=== PATIENT | male | born 1950 | race Caucasian/White ===

== ENCOUNTER → 2018-01-31 07:17 | Outpatient (CLI) | payer BC, SELFPAY ==
--- NOTE | 2018-01-31 07:20 | NM_ITS ---
History and Indications: Coronary artery disease, hypertension, family history, chest pain and fatigue Procedure: Patient exercised on Josh protocol 6 metastases and 45 seconds, resting heart rate was 75 bpm resting blood pressure 166/91, scan maximum heart achieved was 87 bpm which is greater than 85% of the maximum predicted and a blood pressure was 200/90. Test was started due to shortness of breath and fatigue. Patient denied any complained of chest pain. Patient has adequate exercise capacity achieved 7METS of workload on treadmill, the blood pressure response to exercise was adequate. Electrocardiogram: Resting electrocardiogram showed sinus rhythm nonspecific ST-T changes, with exercise there is additional [address] segment depression noted from the baseline EKG. The EKG portion of the exercise Myoview is nondiagnostic baseline abnormal EKG. Cardiac stress and resting SPECT images: Cardiac stress and rest SPECT images were obtained using technetium 99 Myoview 31.7 mCi at stress gated 10.5 mCi at rest. Gated SPECT further analysis of segmental wall motion and calculation of the ejection fraction also done. Cardiac stress and rest SPECT images show a partial fixed defect involving the inferior, posterobasal and apical wall. Consistent with Ischemia and scar, computer derived ejection fraction is 43% with moderate hypokinesis involving the inferior, posterobasal wall and apical wall. Right ventricle is normal size and contractility. Conclusion: 1. The EKG portion of the exercise Myoview is nondiagnostic secondary to baseline abnormal EKG. Patient has adequate exercise capacity achieved 7mets of workload on treadmill, the blood pressure response was adequate, there was no exercise-induced chest discomfort. 2. Scintigraphic evidence of mixed ischemia and scar involving the inferior, posterior basal and apical wall. Computer derived ejection fraction is 43% with segmental wall motion abnormality described above, right ventricle is normal size and contractility. 3. Abnormal exercise Myoview study.
--- NOTE | 2018-01-31 10:01 | HMH.ITSHM ---
ASAS, BUPROPION CITALOPRAM LISINOPRIL PRAVASTATIN OLANZAPINE
[2018-01-31 12:36] LABS: Alanine Aminotransferase 40 U/L (12-78); Albumin Level 3.8 gm/dL (3.4-5.0); Albumin/Globulin Ratio 1.2 (1.1-1.8); Alkaline Phosphatase 99 U/L (46-116); Anion Gap 13.8 mEq/L (5-15); Aspartate Amino Transferase 19 U/L (15-37); Bilirubin,Total 0.6 mg/dL (0.2-1.0); Blood Urea Nitrogen 11 mg/dL (7-18); Calcium 9.5 mg/dL (8.5-10.1); Carbon Dioxide 29 mmol/L (21.0-32.0); Chloride 105 mmol/L (98-107); Chol/HDL Ratio 2.7 (1-3.5); Cholesterol 117 mg/dL (140-200); Creatinine,Serum 1.64 mg/dL (0.70-1.30); Estimated Glomerular Filt Rate 42 ml/min (>60); GFR (African American) 51 ML/MIN (>60); Globulin 3.2 gm/dl (1.3-3.2); Glucose 112 mg/dL (74-106); HDL Cholesterol 43 mg/dL (27-67); LDL Cholesterol 45 mg/dL (0-130); Potassium 4.8 mmoL/L (3.5-5.1); Sodium 143 mmol/L (136-145); Triglycerides 146 mg/dL (30-200); VLDL Cholesterol 29 mg/dL (0-40)
== END ==
PROVIDERS: Family Provider Internal Medicine Adolescent Medicine; Visit Provider Physician Assistant
DX: R07.9 Chest pain, unspecified (principal); I25.10 Atherosclerotic heart disease of native coronary artery without angina pectoris
CPT/HCPCS: 36415; 78452; 80053; 80061; 93017; A9502

== ENCOUNTER → 2018-11-06 12:23 | Outpatient (CLI) | payer BC, SELFPAY ==
[2018-11-06 12:52] LABS: Basophils # 0.1 K/mm3 (0-0.2); Basophils % 1.1 % (0.1-2.0); Eosinophils # 0.3 K/mm3 (0.0-0.4); Eosinophils % 3.6 % (0.1-12.0); Hematocrit 45.7 % (42.0-52.0); Hemoglobin 15.6 g/dL (14.1-18.0); Lymphocytes # 1.5 K/mm3 (0.7-4.5); Lymphocytes % 21.4 % (10-50); Mean Corpuscular HGB Conc 34.2 g/dL (31.8-35.4); Mean Corpuscular Hemoglobin 30.1 pg (27.0-31.2); Mean Corpuscular Volume 88.1 fl (80-94); Monocytes # 0.6 K/mm3 (0.1-1.0); Monocytes % 8.3 % (1.7-9.3); Neutrophils # 4.7 K/mm3 (1.8-7.8); Neutrophils % 65.6 % (37.0-80.0); Platelet Count 260 K/mm3 (142-424); Red Blood Count 5.19 M/mm3 (4.60-6.20); Red Cell Distribution Width 12.9 % (11.5-17.5); White Blood Count 7.2 K/mm3 (4.8-10.8)
== END ==
PROVIDERS: Visit Provider Nurse Practitioner Family
DX: R19.7 Diarrhea, unspecified (principal)
CPT/HCPCS: 36415; 85025

== ENCOUNTER → 2018-11-06 19:00 | Outpatient (CLI) | payer BC, SELFPAY ==
[2018-11-07 10:56] LABS: Adenovirus F 40/41, stool Not Detected (NotDetected); Astrovirus Not Detected (NotDetected); Campylobacter Not Detected (NotDetected); Clostridium Difficile A/B, PCR Not Detected (NotDetected); Cryptosporidium Not Detected (NotDetected); Cyclospora Cayetanesis Not Detected (NotDetected); Entamoeba histolytica Not Detected (NotDetected); Enteroaggregative E coli Not Detected (NotDetected); Enteropathogenic E coli Not Detected (NotDetected); Enterotoxigenic E coli Not Detected (NotDetected); Giardia lamblia Not Detected (NotDetected); Norovirus Not Detected (NotDetected); Plesimonas Shigalloides, PCR Not Detected (NotDetected); Rotavirus A Not Detected (NotDetected); Salmonella, PCR Not Detected (NotDetected); Sapovirus Not Detected (NotDetected); Shiga-like toxin E coli Not Detected (NotDetected); Shigella Enterovasive E coli Not Detected (NotDetected); Vibrio Cholerae Not Detected (NotDetected); Vibrio, PCR Not Detected (NotDetected); Yersinia Entercolitica, PCR Not Detected (NotDetected)
== END ==
PROVIDERS: Visit Provider Nurse Practitioner Family
DX: R19.7 Diarrhea, unspecified (principal)
CPT/HCPCS: 87507

== ENCOUNTER → 2020-01-14 08:27 | Outpatient (CLI) | payer BC, SELFPAY ==
[2020-01-14 09:19] LABS: Blood Urea Nitrogen 14 mg/dl (9-20); Estimated Glomerular Filt Rate 51 ml/min (>60); GFR (African American) 61 ML/MIN (>60)
[2020-01-14 09:48] LABS: Alanine Aminotransferase 53 U/L (12-78); Albumin Level 4.5 g/dl (3.5-5.0); Alkaline Phosphatase 119 U/L (38-126); Aspartate Amino Transferase 43 U/L (17-59); Bilirubin,Direct 0.1 mg/dl (0.0-0.4); Bilirubin,Indirect 0.7 mg/dL (0.0-0.9); Bilirubin,Total 0.8 mg/dl (0.2-1.3); Bilirubin,Unconjugated 0.7 mg/dL (0.0-1.1); Chol/HDL Ratio 3.2 (1-3.5); Cholesterol 153 mg/dl (140-200); HDL Cholesterol 48 mg/dl (40-60); Total Protein,Serum 7.3 g/dl (6.3-8.2); Triglycerides 281 mg/dl (30-150); VLDL Cholesterol 56 mg/dL (0-40)
--- NOTE | 2020-01-14 09:55 | CT_ITS ---
PROCEDURE: CT ABDOMEN PELVIS W CON CLINICAL INDICATION: COLON CANCER, Colon cancer follow-up COMPARISON: CT ABDPELW CT abdomen pelvis w con from 12/01/2018 TECHNIQUE: IV Contrast: 75ML OPTIRAY 350 Oral Contrast None Axial images obtained with sagittal and coronal reformats. All CT scans at the facility use one or more dose reduction, viz: automated exposure control, ma/kV adjustment per patient size (including targeted exams where dose is matched to indication, i.e. head), or iterative reconstruction technique. FINDINGS: There is diffuse fatty liver infiltration. No focal liver lesion is evident. The spleen, adrenal glands, pancreas have an unremarkable appearance. Nonobstructing stone is present in the lower pole of the left kidney outlining left lower pole renal calyx measuring 13 x 13 mm. No intestinal obstruction or free air is evident. Unremarkable appendix. There is a mild amount of retained colonic feces. There is coarse central prostate calcifications with the prostate measuring 4.3 cm. There are small bilateral inguinal hernias containing fat. Anastomosis is present at the rectosigmoid junction and has an unremarkable appearance. No evidence of diverticulitis. No abdominal or pelvic mass evident. There is some stranding of the presacral fat at the S1 level. This is nonspecific and could be related to the previous surgery. Mixed cystic and sclerotic lesion is present involving the ilium on the right which is not significantly changed. No other bony anomalies are apparent. IMPRESSION: 1. Postsurgical changes with an anastomosis at the rectosigmoid junction. There is some minimal stranding of the presacral fat nonspecific and may be postsurgical. 2. No convincing evidence of metastatic disease. 3. Left nephrolithiasis. 4. Fatty liver 5. Other nonacute findings as described above Dictated b Stas Carrasco MD 01/15/2020 12:07 Stas Carrasco MD in [facility] 01/15/2020 12:07
--- NOTE | 2020-01-14 09:55 | CT_ITS ---
PROCEDURE: CT CHEST W CON CLINCAL INDICATION: Colon cancer, evaluate for metastatic disease COMPARISON: CT CT ABDOMEN PELVIS W CON from 01/14/2020 TECHNIQUE: IV Contrast: 75ml Optiray 350 Axial images obtained with sagittal and coronal reformats. All CT scans at the facility use one or more dose reduction, viz: automated exposure control, ma/kV adjustment per patient size (including targeted exams where dose is matched to indication, i.e. head), or iterative reconstruction technique. FINDINGS: HEART AND MEDIASTINAL STRUCTURES: There are coronary artery calcifications. No mediastinal or hilar mass or adenopathy is evident. LUNGS AND PLEURAL SPACES: There is evidence of old granulomatous disease. There is an irregular opacity in the right lung base posteriorly at 12 mm. This may be due to an area of scarring. Stability may be confirmed with follow-up. There is a longitudinal area of increased density in the left lung base posteriorly and may be due to an area atelectasis. No effusions or infiltrates. BONY STRUCTURES: No acute bony anomalies. No bony destructive process. There are degenerative changes in the thoracic spine UPPER ABDOMEN: Unremarkable. ADDITIONAL FINDINGS: Gynecomastia IMPRESSION: 1. Overall no convincing evidence of metastatic disease. 2. There is an indeterminate 12 mm nodular opacity in the right lung base which may be due to an area of scarring. Recommend 3 month follow-up to confirm stability in this patient with history of colon cancer. Dictated b Stas Carrasco MD 01/15/2020 11:58 Stas Carrasco MD in [facility] 01/15/2020 11:58
[2020-01-14 09:59] LABS: Direct LDL Cholesterol 55.49 mg/dL (100-129)
== END ==
PROVIDERS: Urology; PCP Internal Medicine Adolescent Medicine; Visit Provider Surgery
DX: C18.9 Malignant neoplasm of colon, unspecified (principal); E78.5 Hyperlipidemia, unspecified; I11.9 Hypertensive heart disease without heart failure; I25.10 Atherosclerotic heart disease of native coronary artery without angina pectoris
CPT/HCPCS: 36415; 71260; 74177; 80061; 80076; 82565; 84520; Q9967

== ENCOUNTER → 2020-01-14 08:55 | Outpatient (CLI) | payer BC, SELFPAY | PROVIDERS: Visit Provider Urology | DX: C18.9 Malignant neoplasm of colon, unspecified (principal) ==

== ENCOUNTER → 2020-03-15 08:05 | Outpatient (CLI) | payer BC, SELFPAY ==
[2020-03-15 08:52] LABS: Basophils # 0.1 K/mm3 (0-0.2); Basophils % 1.6 % (0.1-2.0); Eosinophils # 0.2 K/mm3 (0.0-0.4); Eosinophils % 3.2 % (0.1-12.0); Hematocrit 52.3 % (42.0-52.0); Lymphocytes # 1.5 K/mm3 (0.7-4.5); Lymphocytes % 21.8 % (10-50); Mean Corpuscular HGB Conc 32.5 g/dL (31.8-35.4); Mean Corpuscular Volume 95.2 fl (80-94); Mean Platelet Volume 7.3 fl (7.4-10.4); Monocytes # 0.6 K/mm3 (0.1-1.0); Monocytes % 7.9 % (1.7-9.3); Neutrophils # 4.6 K/mm3 (1.8-7.8); Neutrophils % 65.5 % (37.0-80.0); Platelet Count 240 K/mm3 (142-424); Red Blood Count 5.49 M/mm3 (4.60-6.20); Red Cell Distribution Width 12.9 % (11.5-17.5); White Blood Count 7.1 K/mm3 (4.8-10.8)
[2020-03-15 09:22] LABS: Chloride 104 mmol/L (98-107); Potassium 4.8 mmoL/L (3.5-5.1); Sodium 141 mmol/L (136-145)
[2020-03-15 09:24] LABS: Blood Urea Nitrogen 13 mg/dl (9-20); Estimated Glomerular Filt Rate 51 ml/min (>60); GFR (African American) 61 ML/MIN (>60)
[2020-03-15 09:25] LABS: Alanine Aminotransferase 45 U/L (12-78); Albumin Level 4.1 g/dl (3.5-5.0); Albumin/Globulin Ratio 1.4 (1.1-1.8); Alkaline Phosphatase 103 U/L (38-126); Anion Gap 13.8 mEq/L (5-15); Aspartate Amino Transferase 39 U/L (17-59); Bilirubin,Total 0.8 mg/dl (0.2-1.3); Calcium 9.9 mg/dl (8.4-10.2); Carbon Dioxide 28 mmol/L (22.0-30.0); Chol/HDL Ratio 3.6 (1-3.5); Cholesterol 151 mg/dl (140-200); Globulin 2.9 g/dL (1.3-3.2); Glucose 131 mg/dl (74-100); HDL Cholesterol 42 mg/dl (40-60); Triglycerides 249 mg/dl (30-150); VLDL Cholesterol 50 mg/dL (0-40)
[2020-03-15 09:37] LABS: Direct LDL Cholesterol 62.67 mg/dL (100-129)
[2020-03-15 09:42] LABS: Triiodothryronine (T3) Uptake 29 % (23.5-40.5)
[2020-03-15 09:43] LABS: Free Thyroxine Index 1.6 ug/dL (5.93-13.13); T4 (Thyroxine) 5.4 ug/dl (5.53-11.0)
[2020-03-15 09:56] LABS: Thyroid Stimulating Hormone 4.01 uIU/mL (0.465-4.68)
[2020-03-15 11:00] LABS: Hemoglobin A1C 5.9 % (4.0-6.0)
== END ==
PROVIDERS: Visit Provider Nurse Practitioner Psychiatric/Mental Health
DX: F33.0 Major depressive disorder, recurrent, mild (principal)
CPT/HCPCS: 36415; 80053; 80061; 83036; 84436; 84443; 84479; 85025

== ENCOUNTER 2020-11-24 13:41 | Outpatient (RCR) | payer BC, SELFPAY ==
--- NOTE | 2020-11-24 14:36 | HMH.PTOPEV ---
PT Outpatient Evaluation Rehab PT Outpatient Evaluation Start: 11/24/20 13:51 Freq: Status: Active Protocol: Document 11/24/20 13:51 PDESEROUX (Rec: 11/24/20 14:35 [email or web address] [id number]) Electronically Signed By John Paul Otoole PT 11/24/20 13:51 Outpatient Therapy Subjective History Subjective History Pt. is a 70 year old male who presents to outpatient PT clinic w/ previous c/o of constant and acute RLE hip/anterior thigh P ! of insidious onset 2 wks. ago. However, pt. reports having 90% symptom relief the past few days after taking his prescribed anti-inflammatory and muscle relaxer, and has requested to HOLD on PT at this time. Pt. described his previous symptoms as a pressure/charley horse over hip/anterior thigh, RLE, that would worsen w/ prolonged ambulation. Pt. reported having symptom relief w/ sitting. Pt. denies having any recent diagnostic imaging nor injections for current pathology. Pt. also denies having any bowel/bladder dysfunction. Pt. denies having symptoms into the LLE and denies having symptoms inferior to the knee of the RLE. Pt. reports returning to occupational duties tomorrow d /t symptom relief. Current medications include prescribed anti-inflammatory, muscle relaxer, Hypertension medication, and a Hyperlipidemia medication(pt. unable to recall names at this time). PMH includes Hypertension, Hyperlipidemia, Cardiac Stents x 3, Colectomy, and history of colon cancer. Chief Complaint Pain,Spasms,Paresthesia, Weakness,Other Symptom Type Ache,Dull,Other Symptoms Relieved By Rest/Positioning,Prescription Me
== END 2021-01-02 09:53 | disposition home or self-care (01) ==
LOC: PT.CARL 13:41
PROVIDERS: PCP Internal Medicine Adolescent Medicine; Visit Provider Nurse Practitioner Family
DX: M54.41 Lumbago with sciatica, right side (principal)
CPT/HCPCS: 97163

== ENCOUNTER → 2021-06-30 09:11 | Outpatient (CLI) | payer BC, SELFPAY | PROVIDERS: Visit Provider Nurse Practitioner | DX: U07.1 COVID-19 (principal) | CPT/HCPCS: C9803; U0003; U0005 ==